=== PATIENT | female | born 1975 | race Caucasian/White ===

== ENCOUNTER 2022-06-28 18:48 | Emergency (ER) | payer SELFPAY ==
[~2022-06-28] VITALS: Ht 160 cm; Wt 67.1 kg
[2022-06-28 19:04] VITALS: BP 143/79
[2022-06-28] MEDS ORDERED: TORADOL IM STA (20:48)
[2022-06-28] MEDS ORDERED: TORADOL ONE (20:53)
--- NOTE | 2022-06-28 20:55 | ER.PDOC ---
General Chief Complaint: Sore Throat Stated Complaint: SORES IN MOUTH TRAVEL OUT OF US: No Time seen by MD: 20:50 Source: patient Exam Limitations: no limitations History of Present Illness Initial Comments Painful sores in mouth for several days. No fever or chills. Severity: moderate Associated Symptoms: denies symptoms Past Medical History Medical History: no pertinent history Surgical History: other Family History Significant Family History: no pertinent family hx Social History Smoking: non-smoker Alcohol Use: none Drug Use: none Review of Systems Constitutional: no symptoms reported EENTM: see HPI Respiratory: no symptoms reported Cardiovascular: no symptoms reported Gastrointestinal: no symptoms reported All Other Systems: Reviewed and Negative Physical Exam General Appearance: No Apparent Distress, WD/WN EENT: other (Multiple cold sores in the mouth) Neck: Non-Tender, Full Range of Motion, Supple Respiratory: chest non-tender, lungs clear, normal breath sounds, no respiratory distress CVS: reg rate & rhythm, no murmur, no gallop, pulses nml, nml capillary refill Gastrointestinal: Normal Bowel Sounds, No Organomegaly, No Pulsatile Mass, Non Tender Back: Normal Inspection Extremities: Normal Range of Motion, Non-Tender, Normal Inspection 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: 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 as 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, No Motor/Sensory Deficits, Alert, Normal Mood/Affect Skin: Normal Color Results/Orders Results/Orders Orders - DAVIN SEE MD Influenza A&B (06/28/22 19:03) Strep Screen (06/28/22 19:03) Covid19 Antigen Gen[place]a [place] (06/28/22 19:03) Ketorolac Tromethamine (Toradol) (06/28/22 20:48) Vital Signs Date Time Temp Pulse Resp B/P (MAP) Pulse Ox O2 Delivery O2 Flow Rate FiO2 06/28/22 19:04 97.5 99 18 143/79 (100) 97 Room Air* 0 21 06/28/22 19:04 97.5 99 18 06/28/22 19:04 97.5 99 18 97 Laboratory Tests Test 06/28/22 00:00 Influenza Type A Antigen NEGATIVE (NEG) Influenza Type B Antigen NEGATIVE (NEG) SARS-CoV-2 Antigen (Rapid) NEGATIVE (NEGATIVE) Group A Streptococcus Screen NEGATIVE (NEGATIVE) Progress Progress Patient received a Toradol shot with improvement in pain. She tested negative for flu, strep and COVID Even though treatment is supportive care and self-limiting, she told me that she has had them recurrently, so I will prescribe an antiviral therapy. ER DEPART Departure Time of Disposition: 20:52 Disposition: 01 HOME / SELF CARE / HOMELESS Impression: Primary Impression: Cold sore Condition: Improved Referrals: PCP,UNKNOWN (PCP) PRIMARY CARE PROVIDER Additional Instructions: Diclofenac Acyclovir Follow-up with your PCP in 3 to 5 days Return to ED if worsening or concerns Duration or Time Spent with Pa: 10 min DAVIN SEE MD Jun 28, 2022 20:55
== END 2022-06-28 20:59 | disposition home or self-care (01) ==
LOC: ER 18:48
DX: B00.1 Herpesviral vesicular dermatitis (principal); K13.70 Unspecified lesions of oral mucosa; Z20.822 Contact with and (suspected) exposure to COVID-19
CPT/HCPCS: 99283; 87426; 96372; 87070; 87880; 87804 ×2; J1885

== ENCOUNTER 2023-06-04 19:54 | Emergency (ER) | payer SELFPAY ==
[~2023-06-04] VITALS: Ht 160 cm; Wt 65.8 kg
[2023-06-04 20:05] VITALS: BP 184/125; PULSE 71; PULSE 76; RESP 18; TEMP 98.2; O2SAT 98
[2023-06-04] MEDS ORDERED: OFIRMEV 1000 MG/100 ML 100 ML IV ONE (20:21)
[2023-06-04] MEDS ORDERED: COMPAZINE IV STA (20:21)
[2023-06-04] MEDS ORDERED: COMPAZINE ONE (20:26)
[2023-06-04 20:30] VITALS: BP 179/114; PULSE 82; RESP 18; O2SAT 98
[2023-06-04] MEDS ORDERED: OFIRMEV 1000 MG/100 ML IV SCH (20:30)
[2023-06-04 20:35] LABS: BASOPHIL % 0.3 % (0.0-0.2); EOSINOPHIL # 0.1 10^3/uL (0.0-0.2); EOSINOPHIL % 2.1 % (0.0-5.0); HEMATOCRIT(ML) 47.8 % (36.0-46.0); HEMOGLOBIN 16.1 g/dL (12.0-15.0); LYMPHOCYTES # 1.94 10^3/uL1 (1.0-4.8); LYMPHOCYTES % 29.1 % (24.0-44.0); MEAN CORP HGB 31.3 pg (26-34); MEAN CORP HGB CONCENTRATION 33.7 g/dL (33-36.5); MEAN CORP VOLUME 92.8 fL (78-100); MONOCYTES # 0.3 10^3/uL (0.3-0.8); MONOCYTES % 4.1 % (5.0-12.0); NEUTROPHIL # 4.3 10^3/uL (1.8-7.7); NEUTROPHILS % 64.2 % (41.0-85.0); PLATELET COUNT 248 10^3/uL (150-400); RED BLOOD CELL 5.15 10^6/uL (4.00-5.20); RED CELL DISTRIBUTION WIDTH 14.2 % (11.5-14.5); WHITE BLOOD CELL 6.7 10^3/uL (4.5-11.0)
[2023-06-04 20:46] LABS: +ADD MANUAL DIFF(NO CHRG) NO
[2023-06-04 20:52] LABS: UAMPH METHAMP(SCRN) NEGATIVE (co1000ng/mL); UR MDMA (ECSTASY) SCRN NEGATIVE (c/o300ng/mL); UR METHADONE SCRN NEGATIVE (c/o300ng/mL); UR OPIATE SCRN NEGATIVE (c/o300ng/mL); UR PHENCYCLIDINE (PCP) SCRN NEGATIVE (c/o 25ng/mL); UR TETRAHYDROCANNABINOL SCRN NEGATIVE (c/o 50ng/mL)
[2023-06-04 21:00] VITALS: BP 141/59; PULSE 77; RESP 18; O2SAT 95
[2023-06-04 21:05] LABS: ALANINE AMINOTRANSFERASE(ML) 20 U/L (12-78); ALBUMIN(ML) 3.5 g/dL (3.4-5.0); ALKALINE PHOSPHATASE 112 U/L (50-136); ANION GAP 15.8; ASPARTATE AMINO TRANSFERASE 13 U/L (0-35); CARBON DIOXIDE 25.3 mmol/L (20.0-32); CREATININE SERUM 0.66 mg/dL (0.59-1.40); EST GFR, NON-AA 95.2 (>/=60); GLUCOSE 105 mg/dL (74-106); POTASSIUM 4.1 mmol/L (3.6-5.2); SODIUM 142 mmol/L (132-145); TROPONIN I HIGH SENSITIVITY < 4 ng/L (0-50)
== END 2023-06-04 21:33 | disposition home or self-care (01) ==
LOC: ER 19:54
DX: R51.9 Headache, unspecified (principal); I10 Essential (primary) hypertension; F17.210 Nicotine dependence, cigarettes, uncomplicated; Z88.5 Allergy status to narcotic agent
CPT/HCPCS: 99284; 96374; 96375; 80053; 85025; 36415; 84484; 80307; 93005; J0131; J0780

== ENCOUNTER 2023-08-02 15:52 | Emergency (ER) | payer SELFPAY ==
[~2023-08-02] VITALS: Ht 160 cm; Wt 65.8 kg
[2023-08-02 16:06] VITALS: BP 155/98; PULSE 66; RESP 18; TEMP 98.5; O2SAT 96
[2023-08-02] MEDS ORDERED: NORVASC ONE (16:52)
[2023-08-02] MEDS: NORVASC PO STA (16:52)
[2023-08-02 16:56] VITALS: BP 150/88; PULSE 71; RESP 18; TEMP 98.5; O2SAT 96
== END 2023-08-02 16:59 | disposition home or self-care (01) ==
LOC: ER 15:52
DX: I10 Essential (primary) hypertension (principal); Z88.5 Allergy status to narcotic agent; Z88.8 Allergy status to other drugs, medicaments and biological substances
CPT/HCPCS: 80053; 82150; 83690; 85025; 85610; 85730; 93005; 99283

== ENCOUNTER → 2025-03-31 | Outpatient (CLI) | payer SELFPAY | END | disposition home or self-care (01) | LOC: RAD 11:23 | PROVIDERS: ATTEND Nurse Practitioner Family | DX: I70.0 Atherosclerosis of aorta (principal); R05.1 Acute cough | CPT/HCPCS: 71046 ==